=== PATIENT | male | born 1955 | race Caucasian/White ===

== ENCOUNTER 2016-10-13 18:15 | Emergency (ER) | payer OTHER ==
[2016-10-13] MEDS ORDERED: MORPHINE 4 MG/ML SYR ONE (19:47)
[2016-10-13] MEDS ORDERED: ONDANSETRON ODT 4 MG TAB ONE (19:48)
== END 2016-10-13 20:40 | disposition home or self-care (01) ==
LOC: ER 18:15
DX: S39.012A Strain of muscle, fascia and tendon of lower back, initial encounter (principal); M51.36 Other intervertebral disc degeneration, lumbar region; M54.32 Sciatica, left side
CPT/HCPCS: 72100; 96372